=== PATIENT | male | born 1995 | race Caucasian/White ===

== ENCOUNTER 2021-01-06 04:29 | Emergency (ER) | payer SELFPAY ==
[~2021-01-06] VITALS: Ht 165.1 cm; Wt 81.6 kg
[2021-01-06 04:39] VITALS: BP 131/90; Ht 165.1 cm; Wt 81.6 kg
== END 2021-01-06 05:13 | disposition home or self-care (01) ==
LOC: ED 04:29
DX: L03.114 Cellulitis of left upper limb (principal); F15.10 Other stimulant abuse, uncomplicated; F11.10 Opioid abuse, uncomplicated
CPT/HCPCS: 90715